=== PATIENT | male | born 1990 | race Caucasian/White ===

== ENCOUNTER 2023-03-25 08:46 | Outpatient (OUT) | payer OTHER, SELFPAY ==
[2023-03-26 04:14] LABS: Testosterone 504 ng/dL (264-916)
== END 2023-03-25 08:47 | disposition home or self-care (01) ==
PROVIDERS: PCP Internal Medicine; Visit Provider Internal Medicine
DX: G82.20 Paraplegia, unspecified (principal); M62.81 Muscle weakness (generalized)
CPT/HCPCS: 36415; 84403

== ENCOUNTER 2024-10-07 09:50 | Outpatient (OUT) | payer OTHER, SELFPAY ==
--- NOTE | 2024-10-07 09:54 | XR_ITS ---
[address] [address] Patient Name: BRAYAN CUEVAS MRN: [id number] date: 1990 Sex: M Assigned Patient Location: [facility] Current Patient Location: LAB Accession/Order Number: [id number] Exam Date: 10/07/2024 10:02 Report Date: 10/07/2024 11:10 At the request of: NON-STAFF PHYSICIAN Procedure: XR DEXA axial skeleton EXAMINATION: XR DEXA axial skeleton HISTORY: Osteoporosis COMPARISON: No relevant comparison available. TECHNIQUE: Dual-energy X-ray absorptiometry (DXA) was performed. FINDINGS: SPINE ANALYSIS: Average bone mineral density is 1.091 g/cm2. T-score (standard deviation relative to young adult mean): -1.1 . HIP ANALYSIS: Lowest bone mineral density is within the left femoral neck, 0.600 g/cm2. T-score (standard deviation relative to young adult mean): -3.6 . XR/XR DEXA axial skeleton IMPRESSION: World Health Organization Classification: Osteoporosis - High Fracture Risk FRAX: Cannot be calculated. Pharmacologic treatment recommendations * No uniform recommendation applies to all patients. Management plans must be individualized. * Consider initiating pharmacologic treatment in postmenopausal women and men >= 50 years of age who have the following: Primary fracture prevention: * T-score <= - 2.5 at the femoral neck, total hip, lumbar spine, 33% radius (some uncertainty with existing data) by DXA. * Low bone mass (osteopenia: T-score between - 1.0 and - 2.5) at the femoral neck or total hip by DXA with a 10-year hip fracture risk >= 3% or a 10-year major osteoporosis-related fracture risk >= 20% (i.e., clinical vertebral, hip, forearm, or proximal humerus) based on the [place]-adapted FRAXregistered model. Secondary fracture prevention: * Fracture of the hip or vertebra regardless of BMD [4, 5]. * Fracture of proximal humerus, pelvis, or distal forearm in persons with low bone mass (osteopenia: T-score between - 1.0 and - 2.5). The decision to treat should be individualized in persons with a fracture of the proximal humerus, pelvis, or distal forearm who do not have osteopenia or low BMD [12, 13]. Nikhil MS, Patricia SL, Oumou KL, Ina EM, Lance KG, AJ, Franklin ES. The clinician's guide to prevention and treatment of osteoporosis. Osteoporos Int. 2021;33(10):8731-7419. doi: 10.1007/p25463-677-98200-b. Epub 2021Jan 04. Erratum in: Osteoporos Int. 2021Apr 05;: PMID: [id number]; PMCID: [id number]. Electronically authenticated by: JOSÉ MIGUEL SPENCER Date: 10/07/2024 11:10
== END 2024-10-07 09:51 | disposition home or self-care (01) ==
LOC: RAD 09:50
PROVIDERS: PCP Internal Medicine
DX: Z00.00 Encounter for general adult medical examination without abnormal findings (principal); E55.9 Vitamin D deficiency, unspecified; M81.8 Other osteoporosis without current pathological fracture
CPT/HCPCS: 36415; 77080; 80053; 80061; 82306; 85025

== ENCOUNTER 2024-10-07 10:17 | Outpatient (OUT) | payer OTHER, SELFPAY ==
[2024-10-07 10:55] LABS: Basophils Absolute Auto 0.1 10^3/uL (0.0-0.1); Basophils Percent Auto 0.7 % (0.2-2.0); Eosinophils Absolute Auto 0.1 10^3/uL (0.0-0.7); Eosinophils Percent Auto 1.7 % (0.9-7.0); Hematocrit 42.4 % (42.0-54.0); Hemoglobin 14.5 g/dL (14.0-18.0); Immature Granulocytes Abs Auto 0.02 10^3/uL (0.00-0.03); Immature Granulocytes Pct Auto 0.3 % (0.0-0.5); Lymphocytes Absolute Auto 1.9 10^3/uL (1.2-3.8); Lymphocytes Percent Auto 27.6 % (20.5-60.0); Mean Corpuscular HGB Conc 34.2 g/dL (29.9-35.2); Mean Corpuscular Hemoglobin 30.5 pg (25.9-34.0); Mean Corpuscular Volume 89.1 fL (80.0-94.0); Mean Platelet Volume 9.3 fL (9.5-13.5); Monocytes Absolute Auto 0.4 10^3/uL (0.3-0.8); Monocytes Percent Auto 6.1 % (1.7-12.0); Neutrophils Absolute Auto 4.4 10^3/uL (1.4-6.5); Neutrophils Percent Auto 63.6 % (43.0-75.0); Platelet Count 238 10^3/uL (150-450); Red Blood Count 4.76 10^6/uL (4.70-6.10); Red Cell Distribution Width 12.7 % (11.0-15.0); White Blood Count 6.9 10^3/uL (4.0-11.0)
[2024-10-07 11:32] LABS: Alanine Aminotransferase 26 U/L (16-63); Albumin Globulin Ratio 1.3; Albumin Level 4.1 g/dL (3.4-5.0); Alkaline Phosphatase 60 U/L (46-116); Anion Gap 13.3; Aspartate Amino Transferase 15 U/L (15-37); BUN Creatinine Ratio 16.7; Bilirubin Total 0.3 mg/dL (0.2-1.0); Calcium 8.8 mg/dL (8.5-10.1); Carbon Dioxide 27.7 mmol/L (21.0-32.0); Chloride 106 mmol/L (98-107); Cholesterol 150 mg/dL (<=200); Estimated GFR (African America >60 (>=60 mL/min/1.73m^2); Estimated GFR (Non-African Ame >60 (>=60 mL/min/1.73m^2); Globulin 3.1 g/dL; Glucose 94 mg/dL (74-106); HDL Cholesterol 50 mg/dL (40-60); LDL Cholesterol Calculated 92.6 mg/dL; Sodium 143 mmol/L (136-145); Total Protein 7.2 g/dL (6.4-8.2); Triglycerides 37 mg/dL (<=150); VLDL CHOLESTEROL 7.4 mg/dL
== END 2024-10-07 10:18 | disposition home or self-care (01) ==
LOC: LAB 10:18
PROVIDERS: PCP Internal Medicine; Visit Provider Internal Medicine
DX: Z00.00 Encounter for general adult medical examination without abnormal findings (principal); E55.9 Vitamin D deficiency, unspecified
CPT/HCPCS: 36415; 80053; 80061; 82306; 85025

== ENCOUNTER 2025-02-04 07:38 | Outpatient (RCR) | payer OTHER, SELFPAY ==
[2025-02-04 13:40] VITALS: BP 121/80; PULSE 77; TEMP 36.9; O2SAT 97
[2025-02-04 13:49] LABS: Anion Gap 13.1; BUN Creatinine Ratio 16.9; Calcium 9.5 mg/dL (8.5-10.1); Chloride 105 mmol/L (98-107); Estimated GFR (African America >60 (>=60 mL/min/1.73m^2); Estimated GFR (Non-African Ame >60 (>=60 mL/min/1.73m^2); Glucose 100 mg/dL (74-106); Potassium 4.1 mmol/L (3.5-5.1); Sodium 145 mmol/L (136-145)
--- NOTE | 2025-02-04 13:55 | PC.NURSE ---
labs reviewed with patient, also given education on osteoporosis as well as reclast infusion. instructed on ca and vit replacement and encouraged him to check with ordering physician regarding taking vit d and calcium supplementation. verbalizes understanding
[2025-02-04] MEDS: ZOLEDRONIC ACID/MANNITOL-WATER 5 MG/100 ML BOTTLE 400 MG IV (14:05)
== END 2025-02-08 10:56 | disposition home or self-care (01) ==
LOC: LAB 07:38
PROVIDERS: PCP Internal Medicine; Visit Provider Internal Medicine
DX: M81.8 Other osteoporosis without current pathological fracture (principal); Z79.899 Other long term (current) drug therapy
CPT/HCPCS: 36415; 80048; 82306; 96374; J3489